=== PATIENT | male | born 1940 | race Hispanic/Latino ===

== ENCOUNTER 2024-04-09 11:48 | Emergency (ER) | payer OTHER, SELFPAY ==
[2024-04-09 11:58] VITALS: BP 139/94
[2024-04-09 12:22] LABS: % Basophils 0.6 % (0-2); % Eosinophils 1.8 % (0-6); % Immature Granulocytes 0.4 % (0-0.5); % Lymphocytes 28.7 % (20.5-51.1); % Monocytes 11.8 % (1.7-9.3); % Neutrophils 56.7 % (42.2-75.2); Absolute Basophils 0.1 10^3/uL (0-0.2); Absolute Eosinophils 0.2 10^3/uL (0-0.7); Absolute Lymphocytes 2.4 10^3/uL (1.2-3.4); Absolute Neutrophils 4.7 10^3/uL (1.4-6.5); Hematocrit 42.1 % (39.0-52.0); Hemoglobin 14.5 g/dL (13.0-18.0); Mean Corp Hgb Conc. 34.4 g/dL (33.0-37.0); Mean Corpuscular Hgb 33.1 pg (27.0-31.0); Mean Corpuscular Volume 96.1 fL (80.0-94.0); Mean Platelet Volume 9.8 fL (7.4-10.4); Nucleated Red Blood Cells % 0 % (-); Platelet Count 180 10^3/uL (130-400); Red Blood Cell Count 4.38 10^6/uL (4.70-6.10); Red Cell Dist. Width 16.9 % (11.5-14.5); White Blood Cell Count 8.2 10^3/uL (4.8-10.8)
[2024-04-09 12:40] LABS: ALT (SGPT) 51 U/L (0-50); AST (SGOT) 44 U/L (17-59); Albumin 3.4 g/dl (3.5-5.0); Alkaline Phosphatase 376 U/L (38-126); Blood Urea Nitrogen 19 mg/dl (9-20); Calcium 8.8 mg/dl (8.4-10.2); Carbon Dioxide 30 mmol/L (22-30); Chloride 96 mmol/L (98-107); Glucose 97 mg/dl (70-99); Potassium 4.1 mmol/L (3.5-5.1); Sodium 133 mmol/L (135-145); Total Bilirubin 2.4 mg/dl (0.2-1.3); Total Protein 5.7 g/dl (6.3-8.2); eGFR > 60.00
[2024-04-09 12:48] LABS: NT-proBNP 4060 pg/ml; Troponin I < 0.012 ng/ml
--- NOTE | 2024-04-09 15:48 | ED.GENMED ---
History of Present Illness
General
Chief Complaint: Cardiac Symptoms
Source: patient and family (Daughter who is acting as side trimmer)
Time Seen by Provider: 04/09/24 15:02
History of Present Illness
History of Present Illness:
83-year-old male who is visiting the area from [facility] presents to the emergency room for evaluation of palpitations, shortness of breath particular with exertion. Patient has been experiencing the symptoms intermittently for the past few days. He
is compliant with his medications including his anticoagulant, Lixiana which is a factor Xa inhibitor. Patient has not had a fever but he does have a cough. Patient evidently has a history of frequent lung infections for which he takes Bactrim as
a prophylaxis. He also has a history of hypertensive cardiomyopathy and CLL. Currently the patient is not experiencing the symptoms that brought him to the emergency room.
Phy Exam
Physical Exam
Physical Exam:
General: Awake, Alert, Oriented X3. No acute distress but appears stated age
Vitals: Afebrile. I repeated the patient's oral temperature and found it to be 98.5
Head: Atraumatic
Eyes: Pupils equal, EOMI
Throat: Airway intact, no exudates
Neck: Trachea midline
Lungs: Expiratory wheezing bilaterally, rhonchi bilateral
Heart: iregular rate, no murmurs
Abd: Soft, Nontender, No pulsatile mass
Neuro: Nonfocal
Skin: Warm, dry, no rash
Extremities: pulses equal b/l, no edema
Course
Orders/Labs/Results
Orders:
Orders
04/09/24 11:50
EKG [Electrocardiogram (*1)] Urgent
Reason for Study: Palpitations
EKG- Treatment ONCE
04/09/24 12:12
Complete Blood Count/With Diff Urgent
Comprehensive Metabolic Panel Urgent
Pro-BNP [NT-proBNP] Urgent
Troponin I Urgent
04/09/24 15:46
CR Chest - 2 Views Urgent
Comment:
Reason For Exam: shortness of breath
04/09/24 16:41
Ipratropium/Albuterol Sulfate [Duoneb] 3 ml INH R NOW STA
Abnormal Lab Results
04/09/24
12:12
RBC 4.38 L 10^6/uL
(4.70-6.10)
MCV 96.1 H fL
(80.0-94.0)
MCH 33.1 H pg
(27.0-31.0)
RDW 16.9 H %
(11.5-14.5)
Absolute Monos (auto) 1.0 H 10^3/uL
(0.1-0.6)
Monocytes % 11.8 H %
(1.7-9.3)
Sodium 133 L mmol/L
(135-145)
Chloride 96 L mmol/L
(98-107)
Total Bilirubin 2.4 H mg/dl
(0.2-1.3)
ALT 51 H U/L
(0-50)
Alkaline Phosphatase 376 H U/L
(38-126)
Total Protein 5.7 L g/dl
(6.3-8.2)
Albumin 3.4 L g/dl
(3.5-5.0)
04/09/24 12:12
04/09/24 12:12
Vital Signs
Initial and Last Documented VS:
Initial Vital Signs
Temp Pulse Resp BP Pulse Ox
97.4 F 82 16 139/94 99
04/09/24 11:58 04/09/24 11:58 04/09/24 11:58 04/09/24 11:58 04/09/24 11:58
Last Documented Vital Signs
Temp Pulse Resp BP Pulse Ox
97.4 F 69 25 139/94 99
04/09/24 11:58 04/09/24 17:30 12/03/24 17:30 04/09/24 11:58 04/09/24 11:58
MDM/Problems Addressed
Differential Diagnosis Includes:
CHF, bronchospasm, pneumonia, anemia
MDM/Problems Addressed:
Patient presents with palpitations, shortness of breath with exertion. On exam it is noted to have some expiratory wheezing. This did improve with a DuoNeb. Labs showed normal hemoglobin normal white count, chemistries are reassuring. T. bili
and AST and alk phos are mildly elevated. BNP is 4060. There is nothing to compare this to. Troponin is normal. Chest x-ray shows a left pleural effusion. Patient is visiting the area from [place]. His daughter who is here with her was able to
communicate with the family back in [place]. It sounds like the pleural effusion on the left is chronic. His A-fib is chronic. He is on a rate control strategy. He seems a bit volume overloaded with some leg edema but he is comfortable. He was
eating a sandwich at the time of my reevaluation. I do not believe the patient requires hospitalization. We will have the patient increase his Lasix dose to 40 mg a day for the next 2 to 3 days. Asked that he monitor his weight. If his breathing
worsens, he has weight gain they should bring the patient back.
Chronic conditions affecting care: HTN
*Radiology
Radiology exam reviewed: radiology read reviewed
*Pulse Oximetry
Patient hypoxic: no
*EKG
Interpreted by ED Provider?: Yes
Interpretation: abnormal
Comparison EKG: no comparison EKG present
Heart Rate: 73
Rate: normal
Rhythm: a-fib
QRS Pattern: right bundle branch block and other (Left anterior fascicular block)
*Scout Leaser Interpretation
Rate: normal
Interpretation: abnormal
Heart Rate: 73
Rhythm: a-fib
*Critical Care Note
Total Time (30-74mins, 75-104mins- exclusive of procedures): Not Applicable
Patient Management
Social determinants of health affecting care: Poor outpatient follow-up and Strong social support
ED Attending Note
-
Portions of this chart may have been created with voice recognition software.� Occasional wrong word or��sound alike� substitutions may have occurred due to the inherent limitations of voice recognition software.
Discharge Plan
Departure
Patient Disposition: Home (Routine Discharge)
Date of Disposition: 04/09/24
Time of Disposition: 17:51
Patient with high blood pressure during this ER visit?: Yes
Condition: Good
Discharge Problem:
Breath shortness, Pleural effusion, Acute bronchospasm, CHF (congestive heart failure)
Instructions: Pleural effusion, Heart Failure ED
Prescriptions:
New
albuterol sulfate 90 mcg/actuation HFA aerosol inhaler
2 puff inhalation Q4H PRN (Reason: shortness of breath or wheezing) Qty: 8.5 0RF
Referrals:
NONE,* [Family Provider] -
Activity Restrictions/Additional Instructions:
You should double the dose of your furosemide for the next two days. Return to the ER if weight increased by 5 pounds or if you feel like your shortness of breath is increasing.
Interventions
Interventions:
*Risk Screen - Suicide Last Done: 04/09/24 17:00
*General Assessment Last Done: 04/09/24 17:00
*Neglect/Abuse Screening Last Done: 04/09/24 17:00
*ED COVID-19 Vaccine History Last Done: 04/09/24 17:00
*Nursing Disposition Last Done: 04/09/24 18:21
ED- Cardiac Assessment Last Done: 04/09/24 17:00
ED- Pulmonary Assessment Last Done: 04/09/24 17:00
Discharge Date and Time
Discharge Date/Time: 04/09/24 18:21
Print Language: ARGENTINE
[2024-04-09] MEDS: DUONEB 3 ML INH (16:54)
== END 2024-04-09 18:21 | disposition home or self-care (01) ==
LOC: EMR 11:48
PROVIDERS: Emergency Medicine; EMERGENCY PHYSICIAN Emergency Medicine
DX: R06.02 Shortness of breath (principal); J90 Pleural effusion, not elsewhere classified; J98.01 Acute bronchospasm; I50.9 Heart failure, unspecified; R00.2 Palpitations; I11.0 Hypertensive heart disease with heart failure; I43 Cardiomyopathy in diseases classified elsewhere; C91.10 Chronic lymphocytic leukemia of B-cell type not having achieved remission; I48.91 Unspecified atrial fibrillation
CPT/HCPCS: 99283; 94640; 71046; 80053; 83880; 84484; 85025; 93005